=== PATIENT | female | born 1940 | race Caucasian/White ===

== ENCOUNTER 2018-05-09 12:37 | Emergency (ER) | payer MEDICARE, OTHER, SELFPAY ==
[2018-05-09 12:46] VITALS: BP 152/81; PULSE 63; RESP 16; O2SAT 100; BMI 24.1
[2018-05-09 14:28] LABS: Add Manual Diff / Slide Review NO; Basophils Absolute Auto 0 /uL (0-100); Basophils Percent Auto 0.5 % (0-2); Eosinophils Absolute Auto 200 /uL (0-450); Hematocrit 47.5 % (36-46); Hemoglobin 15.7 g/dL (12.0-16.0); Lymphocytes Absolute Auto 1700 /uL (1100-4500); Lymphocytes Percent Auto 27.7 % (25-40); Mean Corpuscular HGB Conc 33.1 % (30-36); Mean Corpuscular Hemoglobin 28.6 PG (26-34); Mean Corpuscular Volume 86.4 fL (80-100); Monocytes Absolute Auto 500 /uL (0-900); Neutrophils Absolute Auto 3800 /uL (1500-7000); Neutrophils Percent Auto 60.8 % (50-75); Platelet Count 210 X10^3/uL (150-400); Red Cell Distribution Width 15.9 % (11.6-14.8); White Blood Cell Count 6.2 X10^3/uL (4.5-11.0)
[2018-05-09 14:44] LABS: BUN Creatinine Ratio 26.3 (6-22); Blood Urea Nitrogen 21 mg/dL (7-17); Calcium 9.9 mg/dL (8.4-10.2); Carbon Dioxide 22 mmol/L (22-32); Chloride 105 mmol/L (98-107); Estimated Glomerular Filt Rate > 60.0 mL/min (>60); Glucose 83 mg/dL (80-110); HEMOLYSIS 31 (0-50); Potassium 4.6 mmol/L (3.4-5.1); Sodium 142 mmol/L (137-145)
[2018-05-09 15:00] VITALS: BP 109/91; PULSE 69; RESP 17; O2SAT 100
--- NOTE | 2018-05-09 15:15 | ED.GENADULT ---
HPI - General Adult <Christie Suresh PA-C - Last Filed: 05/09/18 21:32> General Chief complaint: Hypertension Stated complaint: HEADACHE, HIGH BP Time Seen by Provider: 05/09/18 13:40 Source: patient Mode of arrival: ambulatory Limitations: no limitations History of Present Illness HPI narrative: This 78-year-old female comes to ED due to some headache today and feeling dizzy for the last 3 days. She states that headache is a pressure sensation over her left eye area and posterior part of her head. She states that this is mild and has actually improved since it started this morning, but atypical for her. She states that her dizziness is a sensation that she does not quite know where her body or her feet are in space. She states that she has had gradually reduced vision for about the last 6 months and notes that it is harder to read, however she denies any acute vision changes. She denies any chest pain or dyspnea. She denies any nausea or vomiting. 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 She states that her blood pressure is usually in the 110 systolic range. Nurse advised her to have this checked out. She denies any weakness in her extremities or facial muscles, no difficulty with speech or swallowing or daily activities. She states that she does tend to have tight neck muscles which might be exacerbated by her caregiving duties, but no recent injury. She denies any fever, recent illness or upper respiratory symptoms. She states that she thinks her symptoms could be related to stress. She moved here last year and has not been able to see a PCP or I post anesthesia care unit nurse. Related Data Allergies Allergy/AdvReac Type Severity Reaction Status Date / Time No Known Drug Allergies Allergy Verified 05/09/18 12:46 Review of Systems <Christie Suresh PA-C - Last Filed: 05/09/18 21:32> Review of Systems ROS Unobtainable: All systems reviewed & are unremarkable except as noted in HPI and below Exam <Christie Suresh PA-C - Last Filed: 05/09/18 21:32> Narrative Exam Narrative: GENERAL APPEARANCE: Patient sitting comfortably, in no distress. HEENT: PERRL, EOMI, normal TMs and oropharynx, no sinus TTP NECK: Supple, no masses LUNGS: Clear to auscultation bilaterally. HEART: Rate and rhythm regular without murmur, normal S1 and S2, no S3 or S4. ABDOMEN: Soft, NT, ND, + BS x 4 quadrants NEUROLOGIC: Alert and oriented, normal speech, symmetric facial musculature, normal coordination. MUSCULOSKELETAL: Full Csp AROM, no point tenderness over the cervical spine. Mild tenderness over the upper trapezius and cervical strap musculature. Able to maintain extremity position without drift Initial Vital Signs Initial Vital Signs: Vital Signs Pulse Rate 63 05/09/18 12:46 Respiratory Rate 16 05/09/18 12:46 Blood Pressure 152/81 H 05/09/18 12:46 Pulse Oximetry 100 05/09/18 12:46 <Frank Rivas DO - Last Filed: 05/10/18 08:25> Initial Vital Signs Initial Vital Signs: Vital Signs Pulse Rate 63 05/09/18 12:46 Respiratory Rate 16 05/09/18 12:46 Blood Pressure 152/81 H 05/09/18 12:46 Pulse Oximetry 100 05/09/18 12:46 Scores <Christie Suresh PA-C - Last Filed: 05/09/18 21:32> NIH Stroke Scale Level of Conciousness: Alert, keenly responsive Ask month/age: Answers both questions correctly. Open/close eyes, close hand: Performs both tasks correctly Best gaze horizontal: Normal Visual edwards: No visual loss Facial palsy: Normal symetrical movement Left arm drift: No drift for full 10 sec Right arm drift: No drift for full 10 sec Left leg drift: No drift for full 10 sec Right leg drift: No drift for full 10 sec Limb ataxia: Absent Sensory on face/arms/legs: Normal, no sensory loss Best language: No aphasia, normal Dysarthria: Normal Extinction or inattention: No abnormality Total NIH Stroke scale score: 0 Course <Christie Suresh PA-C - Last Filed: 05/09/18 21:32> Additional Information: Patient has fallen asleep while waiting for results and is feeling markedly better. Follow up was arranged with local PCP for her on Sunday and she agrees to return in the interim if any acutely worsening symptoms Orders Ordered: ED Orders 05/09/18 13:40 EKG-12 Lead Stat 05/09/18 14:20 Basic Metabolic Panel Stat Complete Blood Count AUTO DIFF Stat Troponin I Stat 05/09/18 15:32 CT head/brain wo con Stat Vital Signs - 8 hr 05/09/18 15:00 Pulse Rate 69 Respiratory Rate 17 Blood Pressure [Left Arm] 109/91 H Pulse Oximetry 100 <Frank Rivas DO - Last Filed: 05/10/18 08:25> Orders Ordered: ED Orders 05/09/18 13:40 EKG-12 Lead Stat 05/09/18 14:20 Basic Metabolic Panel Stat Complete Blood Count AUTO DIFF Stat Troponin I Stat 05/09/18 15:32 CT head/brain wo con Stat Vital Signs - 8 hr 05/09/18 15:00 Pulse Rate 69 Respiratory Rate 17 Blood Pressure [Left Arm] 109/91 H Pulse Oximetry 100 Medical Decision Making <Christie Suresh PA-C - Last Filed: 05/09/18 21:32> Lab Data Result diagrams: 05/09/18 14:20 05/09/18 14:20 Lab Results 05/09/18 05/09/18 Range/Units 14:20 14:20 WBC 6.2 (4.5-11.0) X10^3/uL RBC 5.50 H (4.0-5.2) X10^6/uL Hgb 15.7 (12.0-16.0) g/dL Hct 47.5 H (36-46) % MCV 86.4 (80-100) fL MCH 28.6 (26-34) PG MCHC 33.1 (30-36) % RDW 15.9 H (11.6-14.8) % Plt Count 210 (150-400) X10^3/uL Neut % (Auto) 60.8 (50-75) % Lymph % (Auto) 27.7 (25-40) % [place] % (Auto) 8.0 (3-14) % Eos % (Auto) 3.0 (2-4) % Baso % (Auto) 0.5 (0-2) % Neut # (Auto) 3800 (6722-3844) /uL Lymph # (Auto) 1700 (4121-3899) /uL [place] # (Auto) 500 (0-900) /uL Eos # (Auto) 200 (0-450) /uL Baso # (Auto) 0 (0-100) /uL Sodium 142 (137-145) mmol/L Potassium 4.6 (3.4-5.1) mmol/L Chloride 105 (98-107) mmol/L Carbon Dioxide 22 (22-32) mmol/L BUN 21 H (7-17) mg/dL Creatinine 0.80 (0.52-1.04) mg/dL Estimated GFR > 60.0 (>60) mL/min BUN/Creatinine Ratio 26.3 H (6-22) Glucose 83 (80-110) mg/dL Calcium 9.9 (8.4-10.2) mg/dL Troponin I < 0.012 (0.01-0.034) ng/mL ECG Data Attestation: I personally reviewed and interpreted this ECG as follows: (Sinus bradycardia with rate 58, left axis deviation, nonspecific ST changes) Prior ECG tracings: not available for review <Frank Rivas DO - Last Filed: 05/10/18 08:25> Lab Data Lab Results 05/09/18 05/09/18 Range/Units 14:20 14:20 WBC 6.2 (4.5-11.0) X10^3/uL RBC 5.50 H (4.0-5.2) X10^6/uL Hgb 15.7 (12.0-16.0) g/dL Hct 47.5 H (36-46) % MCV 86.4 (80-100) fL MCH 28.6 (26-34) PG MCHC 33.1 (30-36) % RDW 15.9 H (11.6-14.8) % Plt Count 210 (150-400) X10^3/uL Neut % (Auto) 60.8 (50-75) % Lymph % (Auto) 27.7 (25-40) % [place] % (Auto) 8.0 (3-14) % Eos % (Auto) 3.0 (2-4) % Baso % (Auto) 0.5 (0-2) % Neut # (Auto) 3800 (9522-4068) /uL Lymph # (Auto) 1700 (2430-5693) /uL [place] # (Auto) 500 (0-900) /uL Eos # (Auto) 200 (0-450) /uL Baso # (Auto) 0 (0-100) /uL Sodium 142 (137-145) mmol/L Potassium 4.6 (3.4-5.1) mmol/L Chloride 105 (98-107) mmol/L Carbon Dioxide 22 (22-32) mmol/L BUN 21 H (7-17) mg/dL Creatinine 0.80 (0.52-1.04) mg/dL Estimated GFR > 60.0 (>60) mL/min BUN/Creatinine Ratio 26.3 H (6-22) Glucose 83 (80-110) mg/dL Calcium 9.9 (8.4-10.2) mg/dL Troponin I < 0.012 (0.01-0.034) ng/mL Discharge Plan Departure Patient Disposition: Home Clinical Impression: Headache, Dizziness Discharge Date/Time: 05/09/18 17:30 Interventions: ED Discharge Assessment Last Done: 05/09/18 16:45 Instructions: DI for Headache, DI for Dizziness-Nonvertigo Activity Restrictions/Additional Instructions: Please return as we talked about if you have any acutely worsening symptoms over the weekend. Your testing did not show any acute abnormality today, and since you are feeling better it is reasonable to monitor at home. I agree with you that your headache may be related to the muscle tension and tightness in your neck and shoulder muscles. Please try ibuprofen as needed as you normally would at home. You may need further testing and referral if your dizziness persists. Please avoid driving and any activities where balance issues could be problematic until you are better. I have set up an appointment for you with Dr. Ferro at the [facility] on Sunday morning at 8:30. They need you there by 815 at the latest to complete paperwork. Referrals: [facility] [Provider Group] <Frank Rivas DO - Last Filed: 05/10/18 08:25> [facility] ED Attending Tomy Attestation: I was immediately available in the department for consultation. Documentation has been reviewed. I agree with assessment and plan.
--- NOTE | 2018-05-09 15:32 | DI.CT.S_ITS ---
PROCEDURE: CT HEAD/BRAIN WO CON INDICATIONS: dizziness, headache TECHNIQUE: Noncontrast 4.5 mm thick angled axial sections acquired from the foramen magnum to the vertex, with coronal and sagittal reformats. For radiation dose reduction, the following was used: automated exposure control, adjustment of mA and/or kV according to patient size. COMPARISON: None. FINDINGS: Image quality: Excellent. CSF spaces: Basal cisterns are patent. No extra-axial fluid collections. The ventricles are symmetric in size and shape. Brain: No intracranial bleeds or masses. There is moderate cerebral volume loss for age, with resultant ventricular and sulcal prominence. There are mild periventricular and deep white matter chronic small vessel ischemic changes. Chronic left putamen lacunar infarct versus prominent perivascular space. Small area of anterior right frontal cephalization is noted which could be related to prior trauma or cerebral vascular accident. There is intracranial internal carotid artery atherosclerosis. Skull and face: Calvarium and visualized facial bones appear intact, without suspicious lesions. Sinuses: Visualized sinuses and mastoids are clear. IMPRESSION: No acute intracranial disease process. Dictated by: Sharmila Bean MD, PhD on 05/09/2018 at 15:57 Approved by: Sharmila Bean MD, PhD on 05/09/2018 at 16:00
--- NOTE | 2018-05-09 15:32 | PC.NURSE ---
only with walking.
--- NOTE | 2018-05-09 15:49 | ED_ITS ---
HPI - General Adult <Christie Suresh PA-C - Last Filed: 05/09/18 21:32> General Chief complaint: Hypertension Stated complaint: HEADACHE, HIGH BP Time Seen by Provider: 05/09/18 13:40 Source: patient Mode of arrival: ambulatory Limitations: no limitations History of Present Illness HPI narrative: This 78-year-old female comes to ED due to some headache today and feeling dizzy for the last 3 days. She states that headache is a pressure sensation over her left eye area and posterior part of her head. She states that this is mild and has actually improved since it started this morning, but atypical for her. She states that her dizziness is a sensation that she does not quite know where her body or her feet are in space. She states that she has had gradually reduced vision for about the last 6 months and notes that it is harder to read, however she denies any acute vision changes. She denies any chest pain or dyspnea. She denies any nausea or vomiting. 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 She states that her blood pressure is usually in the 110 systolic range. Nurse advised her to have this checked out. She denies any weakness in her extremities or facial muscles, no difficulty with speech or swallowing or daily activities. She states that she does tend to have tight neck muscles which might be exacerbated by her caregiving duties, but no recent injury. She denies any fever, recent illness or upper respiratory symptoms. She states that she thinks her symptoms could be related to stress. She moved here last year and has not been able to see a PCP or I personal care aide. Related Data Allergies Allergy/AdvReac Type Severity Reaction Status Date / Time No Known Drug Allergies Allergy Verified 05/09/18 12:46 Review of Systems <Christie Suresh PA-C - Last Filed: 05/09/18 21:32> Review of Systems ROS Unobtainable: All systems reviewed & are unremarkable except as noted in HPI and below Exam <Christie Suresh PA-C - Last Filed: 05/09/18 21:32> Narrative Exam Narrative: GENERAL APPEARANCE: Patient sitting comfortably, in no distress. HEENT: PERRL, EOMI, normal TMs and oropharynx, no sinus TTP NECK: Supple, no masses LUNGS: Clear to auscultation bilaterally. HEART: Rate and rhythm regular without murmur, normal S1 and S2, no S3 or S4. ABDOMEN: Soft, NT, ND, + BS x 4 quadrants NEUROLOGIC: Alert and oriented, normal speech, symmetric facial musculature, normal coordination. MUSCULOSKELETAL: Full Csp AROM, no point tenderness over the cervical spine. Mild tenderness over the upper trapezius and cervical strap musculature. Able to maintain extremity position without drift Initial Vital Signs Initial Vital Signs: Vital Signs Pulse Rate 63 05/09/18 12:46 Respiratory Rate 16 05/09/18 12:46 Blood Pressure 152/81 H 05/09/18 12:46 Pulse Oximetry 100 05/09/18 12:46 <Frank Rivas DO - Last Filed: 05/10/18 08:25> Initial Vital Signs Initial Vital Signs: Vital Signs Pulse Rate 63 05/09/18 12:46 Respiratory Rate 16 05/09/18 12:46 Blood Pressure 152/81 H 05/09/18 12:46 Pulse Oximetry 100 05/09/18 12:46 Scores <Christie Suresh PA-C - Last Filed: 05/09/18 21:32> NIH Stroke Scale Level of Conciousness: Alert, keenly responsive Ask month/age: Answers both questions correctly. Open/close eyes, close hand: Performs both tasks correctly Best gaze horizontal: Normal Visual edwards: No visual loss Facial palsy: Normal symetrical movement Left arm drift: No drift for full 10 sec Right arm drift: No drift for full 10 sec Left leg drift: No drift for full 10 sec Right leg drift: No drift for full 10 sec Limb ataxia: Absent Sensory on face/arms/legs: Normal, no sensory loss Best language: No aphasia, normal Dysarthria: Normal Extinction or inattention: No abnormality Total NIH Stroke scale score: 0 Course <Christie Suresh PA-C - Last Filed: 05/09/18 21:32> Additional Information: Patient has fallen asleep while waiting for results and is feeling markedly better. Follow up was arranged with local PCP for her on Sunday and she agrees to return in the interim if any acutely worsening symptoms Orders Ordered: ED Orders 05/09/18 13:40 EKG-12 Lead Stat 05/09/18 14:20 Basic Metabolic Panel Stat Complete Blood Count AUTO DIFF Stat Troponin I Stat 05/09/18 15:32 CT head/brain wo con Stat Vital Signs - 8 hr 05/09/18 15:00 Pulse Rate 69 Respiratory Rate 17 Blood Pressure [Left Arm] 109/91 H Pulse Oximetry 100 <Frank Rivas DO - Last Filed: 05/10/18 08:25> Orders Ordered: ED Orders 05/09/18 13:40 EKG-12 Lead Stat 05/09/18 14:20 Basic Metabolic Panel Stat Complete Blood Count AUTO DIFF Stat Troponin I Stat 05/09/18 15:32 CT head/brain wo con Stat Vital Signs - 8 hr 05/09/18 15:00 Pulse Rate 69 Respiratory Rate 17 Blood Pressure [Left Arm] 109/91 H Pulse Oximetry 100 Medical Decision Making <Christie Suresh PA-C - Last Filed: 05/09/18 21:32> Lab Data Result diagrams: 05/09/18 14:20 05/09/18 14:20 Lab Results 05/09/18 05/09/18 Range/Units 14:20 14:20 WBC 6.2 (4.5-11.0) X10^3/uL RBC 5.50 H (4.0-5.2) X10^6/uL Hgb 15.7 (12.0-16.0) g/dL Hct 47.5 H (36-46) % MCV 86.4 (80-100) fL MCH 28.6 (26-34) PG MCHC 33.1 (30-36) % RDW 15.9 H (11.6-14.8) % Plt Count 210 (150-400) X10^3/uL Neut % (Auto) 60.8 (50-75) % Lymph % (Auto) 27.7 (25-40) % [place] % (Auto) 8.0 (3-14) % Eos % (Auto) 3.0 (2-4) % Baso % (Auto) 0.5 (0-2) % Neut # (Auto) 3800 (8369-7844) /uL Lymph # (Auto) 1700 (1483-8261) /uL [place] # (Auto) 500 (0-900) /uL Eos # (Auto) 200 (0-450) /uL Baso # (Auto) 0 (0-100) /uL Sodium 142 (137-145) mmol/L Potassium 4.6 (3.4-5.1) mmol/L Chloride 105 (98-107) mmol/L Carbon Dioxide 22 (22-32) mmol/L BUN 21 H (7-17) mg/dL Creatinine 0.80 (0.52-1.04) mg/dL Estimated GFR > 60.0 (>60) mL/min BUN/Creatinine Ratio 26.3 H (6-22) Glucose 83 (80-110) mg/dL Calcium 9.9 (8.4-10.2) mg/dL Troponin I < 0.012 (0.01-0.034) ng/mL ECG Data Attestation: I personally reviewed and interpreted this ECG as follows: (Sinus bradycardia with rate 58, left axis deviation, nonspecific ST changes) Prior ECG tracings: not available for review <Frank Rivas DO - Last Filed: 05/10/18 08:25> Lab Data Lab Results 05/09/18 05/09/18 Range/Units 14:20 14:20 WBC 6.2 (4.5-11.0) X10^3/uL RBC 5.50 H (4.0-5.2) X10^6/uL Hgb 15.7 (12.0-16.0) g/dL Hct 47.5 H (36-46) % MCV 86.4 (80-100) fL MCH 28.6 (26-34) PG MCHC 33.1 (30-36) % RDW 15.9 H (11.6-14.8) % Plt Count 210 (150-400) X10^3/uL Neut % (Auto) 60.8 (50-75) % Lymph % (Auto) 27.7 (25-40) % [place] % (Auto) 8.0 (3-14) % Eos % (Auto) 3.0 (2-4) % Baso % (Auto) 0.5 (0-2) % Neut # (Auto) 3800 (8660-1496) /uL Lymph # (Auto) 1700 (6451-4165) /uL [place] # (Auto) 500 (0-900) /uL Eos # (Auto) 200 (0-450) /uL Baso # (Auto) 0 (0-100) /uL Sodium 142 (137-145) mmol/L Potassium 4.6 (3.4-5.1) mmol/L Chloride 105 (98-107) mmol/L Carbon Dioxide 22 (22-32) mmol/L BUN 21 H (7-17) mg/dL Creatinine 0.80 (0.52-1.04) mg/dL Estimated GFR > 60.0 (>60) mL/min BUN/Creatinine Ratio 26.3 H (6-22) Glucose 83 (80-110) mg/dL Calcium 9.9 (8.4-10.2) mg/dL Troponin I < 0.012 (0.01-0.034) ng/mL Discharge Plan Departure Patient Disposition: Home Clinical Impression: Headache, Dizziness Discharge Date/Time: 05/09/18 17:30 Interventions: ED Discharge Assessment Last Done: 05/09/18 16:45 Instructions: DI for Headache, DI for Dizziness-Nonvertigo Activity Restrictions/Additional Instructions: Please return as we talked about if you have any acutely worsening symptoms over the weekend. Your testing did not show any acute abnormality today, and since you are feeling better it is reasonable to monitor at home. I agree with you that your headache may be related to the muscle tension and tightness in your neck and shoulder muscles. Please try ibuprofen as needed as you normally would at home. You may need further testing and referral if your dizziness persists. Please avoid driving and any activities where balance issues could be problematic until you are better. I have set up an appointment for you with Dr. Ferro at the [facility] on Sunday morning at 8:30. They need you there by 815 at the latest to complete paperwork. Referrals: [facility] [Provider Group] <Frank Rivas DO - Last Filed: 05/10/18 08:25> [facility] ED Attending Tomy Attestation: I was immediately available in the department for consultation. Documentation has been reviewed. I agree with assessment and plan.
[2018-05-09 15:56] LABS: Troponin I < 0.012 ng/mL (0.01-0.034)
== END 2018-05-09 17:30 | disposition home or self-care (01) ==
PROVIDERS: Emergency Provider Internal Medicine
DX: R51 Headache (principal); R42 Dizziness and giddiness
CPT/HCPCS: 36415; 70450; 80048; 84484; 85025; 93005; 93010; 99282; 99285

== ENCOUNTER → 2018-05-28 07:38 | Outpatient (CLI) | payer MEDICARE, OTHER, SELFPAY ==
--- NOTE | 2018-05-28 | DI.MRI.S_ITS ---
PROCEDURE: MR HEAD/BRAIN WO/W CON INDICATIONS: Homonymous bilateral field defects, unspecified si TECHNIQUE: Noncontrast axial T1 spin echo, axial T2 fast spin echo, sagittal and axial FLAIR, coronal T2 fast spin echo, axial gradient echo, axial diffusion and ADC through the brain. After the administration of contrast, axial and coronal T1 spin echo with fat saturation through the brain. COMPARISON: [facility], CT, CT HEAD/BRAIN WO CON, 05/09/2018, 15:32. FINDINGS: Image quality: Excellent. CSF spaces: Basal cisterns are patent. No extra-axial fluid collections. Ventricles are normal in size and shape. Brain: No midline shift. No intracranial bleeds or masses. No abnormal intracranial enhancement. Prominent perivascular space within the left basal ganglia. There is cerebral volume loss for age. There is minimal periventricular white matter chronic small vessel ischemic change. The brainstem appears normal. Diffusion-weighted images demonstrate no acute ischemic insults. No chronic ischemic insults. Normal intravascular flow voids are present. Skull and face: Calvarial marrow is normal in signal. Orbits appear normal. Sinuses: Sinuses and mastoids appear clear. IMPRESSION: 1. No explanation for visual field defects. 2. Mild cerebral volume loss. Minimal small vessel ischemic disease. 3. No acute process. No recent infarct. Dictated by: Jono Odom M.D. on 05/28/2018 at 10:04 Approved by: Jono Odom M.D. on 05/28/2018 at 10:07
== END ==
PROVIDERS: PCP Ophthalmology; Visit Provider Ophthalmology
DX: H53.469 Homonymous bilateral field defects, unspecified side (principal); H53.47 Heteronymous bilateral field defects
CPT/HCPCS: 70553; A9579

== ENCOUNTER → 2018-06-15 10:19 | Outpatient (CLI) | payer MEDICARE, OTHER, SELFPAY ==
[2018-06-15 11:12] LABS: Erythrocyte Sedimentation Rate 2 MM/HR (0-20)
[2018-06-15 11:16] LABS: C-Reactive Protein Quant < 0.5 mg/dL (<1.0)
== END ==
PROVIDERS: PCP Ophthalmology; Visit Provider Ophthalmology
DX: H53.461 Homonymous bilateral field defects, right side (principal)
CPT/HCPCS: 36415; 85651; 86140

== ENCOUNTER → 2019-06-25 09:15 | Outpatient (CLI) | payer MEDICARE, OTHER, SELFPAY ==
--- NOTE | 2019-06-25 | DI.MG.S_ITS ---
BILATERAL DIGITAL SCREENING MAMMOGRAM 3D/2D WITH CAD: 06/25/2019 CLINICAL: Routine screening. Comparison is made to exams dated: 03/31/2014 mammogram, 07/12/2012 mammogram, and 03/14/2011 mammogram - [facility]. There are scattered fibroglandular elements in both breasts. Current study was also evaluated with a Computer Aided Detection (CAD) system. No significant masses, calcifications, or other findings are seen in either breast. There has been no significant interval change. IMPRESSION: NEGATIVE There is no mammographic evidence of malignancy. A 1 year screening mammogram is recommended. This exam was interpreted at Station ID: [id number]. NOTE: For mammograms, a report in lay terms will be sent to the patient. Approximately 15% of breast malignancies will not be visualized mammographically. In the management of a palpable breast mass, a negative mammogram must not discourage biopsy of a clinically suspicious lesion. Electronically Signed By: Ariel villeda/ellen:06/25/2019 09:45:22 letter sent: Normal Exam ACR BI-RADS Category 1: Negative [id number]
== END ==
PROVIDERS: PCP Internal Medicine; Referring Provider Internal Medicine; Visit Provider Internal Medicine
DX: Z12.31 Encounter for screening mammogram for malignant neoplasm of breast (principal); M85.852 Other specified disorders of bone density and structure, left thigh; Z78.0 Asymptomatic menopausal state
CPT/HCPCS: 77063; 77067; 77080